=== PATIENT | male | born 1985 | race Caucasian/White ===

== ENCOUNTER 2017-04-14 19:42 | Inpatient (IN) ==
[~2017-04-14 19:42] MED LIST: Aminoglycoside Consult 1 EACH MC ONE
--- NOTE | 2017-04-14 20:03 | Emergency Department Note ---
Disposition Clinical Impression: Abscess of antecubital fossa, Cellulitis of right forearm Disposition: Admitted As Inpatient Condition: Good Time of Disposition: 00:19 General Adult HPI - General Chief complaint: ED Skin/Abscess/Foreign Body Stated complaint: R elbow swelling Time Seen by Provider: 04/14/17 20:02 Source: patient Mode of arrival: ambulatory Limitations: no limitations Nursing Notes Reviewed: Yes Vital Signs Reviewed: Yes - History of Present Illness HPI Narrative: Patient is a 31-year-old male with past history of IV drug use. He states that he uses heroin occasionally, last used 4 days ago. For the past week, he has had a right AC redness, edema. He states that it is progressively getting worse and now here. Edema has spread distally towards his wrist. Denies any numbness, tingling, weakness. He does have pain on anterior aspect of the elbow when flexing or extending the joint. He denies any fevers or chills, nausea, vomiting, diarrhea, abdominal pain. He states that he has been taking hot showers to see if the abscess would pop on its own. He has not tried to drain this himself home. - Related Data Allergies Allergy/AdvReac Type Severity Reaction Status Date / Time No Known Allergies Allergy Verified 04/14/17 20:05 All systems ED: reviewed and negative except as stated. Constitutional: Denies: fever Cardiovascular: Denies: chest pain Respiratory: Denies: cough, dyspnea Gastrointestinal: Denies: abdominal pain, nausea, vomiting, diarrhea Musculoskeletal: Reports: myalgia Integumentary: Reports: lesions Neurological: Denies: weakness, numbness, paresthesias Endocrine: Denies: fatigue Past Medical History - Past Medical History Attestation: Yes The following information was validated with the patient. Source: patient Physical Exam - General Limitations: no limitations General appearance: alert, in no apparent distress - Head Head exam: atraumatic, normocephalic, normal inspection - Eye Eye exam: Present: normal appearance, PERRL, EOMI - ENT ENT exam: normal exam, normal oropharynx, mucous membranes moist - Neck Neck exam: Present: normal inspection, full ROM, trachea midline - Chest Chest inspection: Present: normal inspection, symmetric chest wall rise - Respiratory Respiratory exam: Present: normal lung sounds bilaterally - Cardiovascular Cardiovascular exam: Present: regular rate, normal rhythm, normal heart sounds - Abdominal Exam Abdominal exam: Present: soft, Non-Tender. Absent: tenderness, distention, guarding, rebound, rigidity - Extremities Exam Extremities exam: Present: other (Erythema and edema of right anterior cubital fossa with fluctuance approximately 3 cm post 3 cm with surrounding cellulitic changes from anterior cubital fossa down ventral aspect of forearm to wrist. ) - Neurological Exam Neurological exam: Present: alert, oriented X3. Absent: motor sensory deficit - Psychiatric Psychiatric exam: Present: normal affect, normal mood - Skin Skin exam: Present: warm, dry, intact, normal color, other (Erythema and edema of right anterior cubital fossa with fluctuance approximately 3 cm post 3 cm with surrounding cellulitic changes from anterior cubital fossa down ventral aspect of forearm to wrist. ) Course Course Narrative: Patient was febrile on presentation. Physical exam shows: Erythema and edema of right anterior cubital fossa with fluctuance approximately 3 cm by 3 cm with surrounding cellulitic changes from anterior cubital fossa down ventral aspect of forearm to wrist. No active draining or opening. We will obtain basic blood work, CBC, BMP, ESR, sedimentation rate, blood cultures, CT of the right upper extremity with contrast. We will perform I&D, will start Vancomycin and admit the patient for further care. Vital Signs Temperature 102.8 F H 04/14/17 20:04 Pulse Rate 79 04/14/17 20:04 Respiratory Rate 18 04/14/17 20:04 Blood Pressure 157/88 04/14/17 20:04 O2 Sat by Pulse Oximetry 96 04/14/17 20:04 Temperature 102.8 F H 04/14/17 20:04 Pulse Rate 79 04/14/17 20:04 Respiratory Rate 16 04/15/17 00:03 Blood Pressure 148/78 04/15/17 00:03 O2 Sat by Pulse Oximetry 96 04/14/17 20:04 Oxygen Delivery Oxygen Delivery Room Air Procedures - Abscess I/D Consent obtained: verbal consent Site: other (Right AC) Side (if applicable): right Local Anesthetic: lidocaine 1%, with epi Amount of Anesthesia Used (mL): 3 Technique: other (Incision with #10 blade) Amount of fluid: 10 (ml) Irrigation: Yes Packing used?: plain Medical Decision Making - MDM Narrative Medical decision making narrative: Patient was febrile on presentation. Physical exam shows: Erythema and edema of right anterior cubital fossa with fluctuance approximately 3 cm by 3 cm with surrounding cellulitic changes from anterior cubital fossa down ventral aspect of forearm to wrist. No active draining or opening. We will obtain basic blood work, CBC, BMP, ESR, sedimentation rate, blood cultures, CT of the right upper extremity with contrast. We will perform I&D, will start Vancomycin, give tylneol for fever, and admit the patient for further care. CT showed: 1. Soft tissue abscess within the antecubital fossa measuring 3.5 x 3.1 x 3.5 cm. 2. No venous thrombosis evident. 3. No radiopaque foreign body or osteomyelitis evident. I&D performed, irrigated, loculations broken up, irrigated, large amount of pus expressed from the abscess site, packed with plain packing. Admitted for further care. Upper Extremity CT 04/14/17 20:23 IMPRESSION: 1. Soft tissue abscess within the antecubital fossa measuring 3.5 x 3.1 x 3.5 cm. 2. No venous thrombosis evident. 3. No radiopaque foreign body or osteomyelitis evident. D/ / 04/14/2017 22:24:57 Roque Parada MD / [facility] Interpreting Provider: Roque Parada MD - Medical Records Medical records reviewed: Yes I reviewed the patient's medical records. - Lab Data Lab results reviewed: Yes I reviewed the patient's lab results. Result diagrams: 04/14/17 20:49 04/14/17 20:49 Lab Results 04/14/17 04/14/17 04/14/17 Range/Units 20:49 20:49 20:49 WBC 13.1 H (4.3-11.1) K/mcL RBC 5.13 (4.19-5.50) M/mcL Hgb 15.8 (12.9-16.9) g/dL Hct 45.1 (37.5-50.1) % MCV 87.9 (83.0-100.0) fL MCH 30.8 (28.0-33.3) pg MCHC 35.0 (31.6-35.5) g/dL RDW 12.9 (11.5-14.5) % Plt Count 224 (140-400) K/mcL MPV 10.8 (9.4-12.4) fL Immature Gran % 0.2 (0-4) % Seg Neutrophils % 71.8 % Lymphocytes % 19.3 % Monocytes % 8.4 % Eosinophils % 0.1 % Basophils % 0.2 % Neutrophils # 9.4 H (1.6-8.9) K/mcL Lymphocytes # 2.5 (0.6-4.6) K/mcL Monocytes # 1.1 (0.0-1.3) K/mcL Eosinophils # 0.0 (0.0-0.6) K/mcL Basophils # 0.0 (0.0-0.2) K/mcL Immature Plt Fraction 5.7 (1.1-6.1) % ESR 96 H (0-10) mm/hr Sodium 130 L (136-145) mEq/L Potassium 3.9 (3.5-5.1) mEq/L Chloride 99 (98-107) mEq/L Carbon Dioxide 25 (23-29) mEq/L BUN 21 H (6-20) mg/dL Creatinine 0.86 (0.70-1.30) mg/dL Est GFR ( Amer) > 60 (> 60) Est GFR (Non-Af Amer) > 60 (> 60) BUN/Creatinine Ratio 24 (6-26) Glucose 101 (70-105) mg/dL Calculated Osmolality 273 L (280-300) Calcium 9.0 (8.6-10.3) mg/dL C-Reactive Protein (Less than 10) mg/L 04/14/17 Range/Units 20:49 WBC (4.3-11.1) K/mcL RBC (4.19-5.50) M/mcL Hgb (12.9-16.9) g/dL Hct (37.5-50.1) % MCV (83.0-100.0) fL MCH (28.0-33.3) pg MCHC (31.6-35.5) g/dL RDW (11.5-14.5) % Plt Count (140-400) K/mcL MPV (9.4-12.4) fL Immature Gran % (0-4) % Seg Neutrophils % % Lymphocytes % % Monocytes % % Eosinophils % % Basophils % % Neutrophils # (1.6-8.9) K/mcL Lymphocytes # (0.6-4.6) K/mcL Monocytes # (0.0-1.3) K/mcL Eosinophils # (0.0-0.6) K/mcL Basophils # (0.0-0.2) K/mcL Immature Plt Fraction (1.1-6.1) % ESR (0-10) mm/hr Sodium (136-145) mEq/L Potassium (3.5-5.1) mEq/L Chloride (98-107) mEq/L Carbon Dioxide (23-29) mEq/L BUN (6-20) mg/dL Creatinine (0.70-1.30) mg/dL Est GFR ( Amer) (> 60) Est GFR (Non-Af Amer) (> 60) BUN/Creatinine Ratio (6-26) Glucose (70-105) mg/dL Calculated Osmolality (280-300) Calcium (8.6-10.3) mg/dL C-Reactive Protein 103 H (Less than 10) mg/L - Radiology Data Radiology results reviewed: Yes I reviewed the patient's radiology results. S.B.A.R. - S.B.A.R. Situation: Demographics, MOA Background: Presenting Complaint, Relevant PMH, Meds, & Allergies Assessment: Vital Signs, Course and respsone to treatment, Exam Concerns, Patient/Family Expectation, Pertinant Lab Results, Outstanding Labs Recommendation: Barrier(s) to disposition, Recommendation based on pending studies, treatments, or consults S.B.A.R. Report Given to: Dr. Leon Attestation Statement - Attestation Attestation: I examined this patient and my medical decision-making was reviewed with the Resident Physician. I agree with the documented findings, disposition and treatment plan as described except to the extent set forth below. Findings consistent with cellulitis from IV drug abuse. CT shows no evidence of deep abscess. Compartments are soft. That said 90 performed and antibiotics initiated. Cultures are pending. Plan to admit for continuation of antibiotic therapy and ongoing monitoring.
[2017-04-14] MEDS ORDERED: diazePAM 10 MG TABLET PO ONE (20:36)
[2017-04-14] MEDS ORDERED: cloNIDine HCl 0.1 MG TABLET PO ONE (20:36)
[2017-04-14] MEDS ORDERED: Lidocaine/EPI 1:100k 1% 20 ML VIAL INFILT ONE (20:41)
[2017-04-14 20:51] LABS: Basophils % 0.2 %; Eosinophils % 0.1 %; Hematocrit 45.1 % (37.5-50.1); Hemoglobin 15.8 g/dL (12.9-16.9); Immature Granulocytes % 0.2 % (0-4); Immature Platelets 5.7 % (1.1-6.1); Lymphocytes # 2.5 K/mcL (0.6-4.6); Lymphocytes % 19.3 %; Mean Corpuscular Hemoglobin 30.8 pg (28.0-33.3); Mean Corpuscular Volume 87.9 fL (83.0-100.0); Mean Platelet Volume 10.8 fL (9.4-12.4); Monocytes # 1.1 K/mcL (0.0-1.3); Monocytes % 8.4 %; Neutrophils # 9.4 K/mcL (1.6-8.9); Platelet Count 224 K/mcL (140-400); Red Blood Count 5.13 M/mcL (4.19-5.50); Red Cell Distribution Width 12.9 % (11.5-14.5); Segmented Neutrophils % 71.8 %
[2017-04-14] MEDS ORDERED: Vancomycin 1,250 MG in D5% in Water 250 ML IVPB ONE (21:00)
[2017-04-14 21:02] LABS: BUN/Creatinine Ratio 24 (6-26); Blood Urea Nitrogen 21 mg/dL (6-20); Carbon Dioxide 25 mEq/L (23-29); Chloride 99 mEq/L (98-107); Glucose 101 mg/dL (70-105); Osmolality,Calculated 273 (280-300); Potassium 3.9 mEq/L (3.5-5.1); Sodium 130 mEq/L (136-145); eGFR For African Americans > 60 (> 60); eGFR For Non-African Americans > 60 (> 60)
[2017-04-14] MEDS ORDERED: Vancomycin 0 MG in D5% in Water 250 ML IVPB SCH (23:45)
[2017-04-14] MEDS ORDERED: 0.9 % Sodium Chloride 1,000 ML IVC SCH (23:45)
[2017-04-14] MEDS ORDERED: Naloxone 0.4 MG/ML INJ IVP PRN (23:52)
[2017-04-14] MEDS ORDERED: Acetaminophen 325 MG TABLET PO PRN (23:52)
[2017-04-14] MEDS ORDERED: Ibuprofen 400 MG TABLET PO PRN (23:52)
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
[2017-04-15] MEDS ORDERED: *HR* Enoxaparin 40 MG/0.4 ML SYRINGE SQ SCH (06:00)
[2017-04-15 06:47] LABS: Basophils % 0.3 %; Eosinophils # 0.1 K/mcL (0.0-0.6); Eosinophils % 0.5 %; Hematocrit 40.8 % (37.5-50.1); Hemoglobin 13.8 g/dL (12.9-16.9); Immature Granulocytes % 0.3 % (0-4); Mean Corpuscular HGB Conc 33.8 g/dL (31.6-35.5); Mean Corpuscular Hemoglobin 30.1 pg (28.0-33.3); Mean Corpuscular Volume 88.9 fL (83.0-100.0); Mean Platelet Volume 10.6 fL (9.4-12.4); Monocytes # 1.2 K/mcL (0.0-1.3); Monocytes % 10.8 %; Neutrophils # 6.8 K/mcL (1.6-8.9); Platelet Count 197 K/mcL (140-400); Red Blood Count 4.59 M/mcL (4.19-5.50); Segmented Neutrophils % 61.1 %
[2017-04-15 06:59] VITALS: BP 120/66
[2017-04-15 07:02] LABS: BUN/Creatinine Ratio 20 (6-26); Blood Urea Nitrogen 15 mg/dL (6-20); Calcium 8.6 mg/dL (8.6-10.3); Carbon Dioxide 23 mEq/L (23-29); Chloride 106 mEq/L (98-107); Glucose 124 mg/dL (70-105); Osmolality,Calculated 278 (280-300); Potassium 3.6 mEq/L (3.5-5.1); Sodium 133 mEq/L (136-145); eGFR For African Americans > 60 (> 60); eGFR For Non-African Americans > 60 (> 60)
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
[2017-04-15] MEDS ORDERED: Vancomycin 1,250 MG in D5% in Water 250 ML IVPB SCH (09:00)
== END 2017-04-15 09:30 | disposition left against medical advice (07) | DRG 603 ==
LOC: EMEROO 19:42 → 3ANU 19:42
PROVIDERS: ADMIT Internal Medicine Hematology & Oncology; ATTEND Internal Medicine